=== PATIENT | male | born 1985 | race Caucasian/White ===

== ENCOUNTER 2021-05-13 19:22 | Emergency (ER) | payer SELFPAY ==
[~2021-05-13] VITALS: Ht 177.8 cm; Wt 88.6 kg
[2021-05-13 19:30] VITALS: BP 142/92
== END 2021-05-13 21:29 | disposition home or self-care (01) ==
LOC: ER 19:22
DX: S42.192A Fracture of other part of scapula, left shoulder, initial encounter for closed fracture (principal); V49.9XXA Car occupant (driver) (passenger) injured in unspecified traffic accident, initial encounter; Y93.89 Activity, other specified; Y92.89 Other specified places as the place of occurrence of the external cause; Y99.8 Other external cause status
CPT/HCPCS: 73000; 73010; 99284